=== PATIENT | male | born 1945 | race Caucasian/White ===

== ENCOUNTER → 2020-05-27 | Outpatient (CLI) | payer OTHER | LOC: HEART 5 04-21 11:00 → EXRD 12:42 → HEART 5 13:00 → EXRD 13:00 → US 13:00 → HEART 5 13:30 | DX: I65.23 Occlusion and stenosis of bilateral carotid arteries (principal); I73.9 Peripheral vascular disease, unspecified; I87.2 Venous insufficiency (chronic) (peripheral) | CPT/HCPCS: 93880; 93970 ==

== ENCOUNTER → 2020-11-11 | Outpatient (CLI) | payer MEDICARE | LOC: ECHO 10:13 | DX: M79.89 Other specified soft tissue disorders (principal); I51.7 Cardiomegaly; I51.9 Heart disease, unspecified | CPT/HCPCS: ECHO; 93306 ==

== ENCOUNTER 2021-07-08 15:32 | Inpatient (IN) | payer MEDICARE, OTHER ==
[~2021-07-08] VITALS: Ht 170.2 cm; Wt 72.6 kg
[2021-07-08 17:23] LABS: HEMOGLOBIN 12.1 gm/dl (14.0-17.5); RED BLOOD COUNT 4.21 M/UL (4.20-5.50); WHITE BLOOD COUNT 4.3 K/UL (4.5-11.0)
[2021-07-08 17:25] LABS: BORDETELLA PARAPERTUSSIS Not Detected (Not Detectd); BORDETELLA PERTUSSIS Not Detected (Not Detectd); CHLAMYDIA PNEUMONIAE Not Detected (Not Detectd); CORONAVIRUS HKU1 Not Detected (Not Detectd); CORONAVIRUS NL63 Not Detected (Not Detectd); CORONAVIRUS OC43 Not Detected (Not Detectd); CORONOAVIRUS 229E Not Detected (Not Detectd); HUMAN METAPNEUMOVIRUS Not Detected (Not Detectd); HUMAN RHINOVIRUS/ENTEROVIRUS Not Detected (Not Detectd); INFLUENZA A Not Detected (Not Detectd); INFLUENZA B Not Detected (Not Detectd); MYCOPLASMA PNEUMONIAE Not Detected (Not Detectd); PARAINFLUENZA VIRUS 1 Not Detected (Not Detectd); PARAINFLUENZA VIRUS 2 Not Detected (Not Detectd); PARAINFLUENZA VIRUS 3 Not Detected (Not Detectd); PARAINFLUENZA VIRUS 4 Not Detected (Not Detectd); RESPIRATORY SYNCYTIAL VIRUS Not Detected (Not Detectd)
[2021-07-08 17:49] LABS: BUN/CREATININE RATIO 28 (0-10)
[2021-07-08 18:43] LABS: SARS-CoV-2 DETECTED (Not Detectd)
[2021-07-08] MEDS ORDERED: METFORMIN HCL500 MG PO (22:59)
[2021-07-08] MEDS ORDERED: DONEPEZIL HCL10 MG PO (23:00)
[2021-07-08] MEDS ORDERED: MELOXICAM15 MG PO (23:01)
[2021-07-08] MEDS ORDERED: ATORVASTATIN CA40 MG PO (23:01)
[2021-07-08] MEDS ORDERED: FUROSEMIDE20 MG PO (23:02)
[2021-07-08] MEDS ORDERED: LISINOPRIL40 MG PO (23:02)
[2021-07-08] MEDS ORDERED: FERROUS SULFAT325 M2 PO (23:13)
[2021-07-08] MEDS ORDERED: VITAMIN C125 MG PO (23:13)
[2021-07-09 07:10] LABS: HEMOGLOBIN 10.8 gm/dl (14.0-17.5); RED BLOOD COUNT 3.81 M/UL (4.20-5.50)
[2021-07-09 07:41] LABS: BUN/CREATININE RATIO 29 (0-10)
[2021-07-10 03:58] LABS: HEMOGLOBIN 11.7 gm/dl (14.0-17.5); RED BLOOD COUNT 4.1 M/UL (4.20-5.50); WHITE BLOOD COUNT 3.9 K/UL (4.5-11.0)
[2021-07-10 04:54] LABS: BUN/CREATININE RATIO 29 (0-10)
[2021-07-11 03:02] LABS: RED BLOOD COUNT 4.25 M/UL (4.20-5.50); WHITE BLOOD COUNT 3.3 K/UL (4.5-11.0)
[2021-07-11 04:00] LABS: BUN/CREATININE RATIO 22 (0-10)
--- NOTE | 2021-07-11 19:29 | NUR ---
PT TRANSPORTED TO STAT CTA OF HEAD AND NECK TO R/O STROKE. PT STABLE AT THE TIME OF TRANSFER.
--- NOTE | 2021-07-11 19:54 | NUR ---
PT TRANSPORTED BACK TO ROOM [address] PT IN ROOM. BED IN LOWEST POSITION, CALL LIGHT WITHIN REACH, STRIP ALARM PLUGGED BACK IN. PT STABLE.
[2021-07-12 03:52] LABS: HEMOGLOBIN 14.7 gm/dl (14.0-17.5); RED BLOOD COUNT 5.13 M/UL (4.20-5.50); WHITE BLOOD COUNT 5.5 K/UL (4.5-11.0)
[2021-07-12 04:13] LABS: BUN/CREATININE RATIO 29 (0-10)
--- NOTE | 2021-07-12 08:59 | NUR ---
FINISHED PATIENTS ASSESSMENT THIS AM AND RECIEVED CALL FROM FAMILY MEMBER CONCERNING PATIENT. INFORMED FAMILY MEMBER WHO HAD HIPPA CODE WORD THAT I WAS CONCERNED FOR THE PATIENT. PATIENT WAS NON RESPONSIVE, HANDS AND FEET WERE COLD AND PATIENTS BREATHING WAS LABORED AND SLOW. FAMILY MEMBER REITERATED PATIENTS WISHES TO BE DNR DNI AND TO BE MADE COMFORTABLE. I HUNG UP WITH THE FAMILY MEMBER ASSURING THEM I WOULD CALL WITH ANY CHANGES TO MR. VENCES. I WAS FINISHING MY ASSESSMENT ON NEXT PATIENT MY PHONE RANG, IT WAS TELEMETRY INFORMING ME THAT THE PATIENT HAD BRADIED DOWN INTO THE THIRTIES AND REACHED ASYSTOLE. DOROTHY FELIX RN ARRIVED AT PATIENTS ROOM AND HELPED ASSESS PATIENT. THE PATIENT HAD NO PULSE NO HEART BEAT AND NO BP. TIME OF 0814.
== END 2021-07-12 11:19 | disposition expired | DRG 177 ==
LOC: ER1 15:32 → MED SURG 4 20:30 → CDU 20:30 → MED SURG 4 21:49
PROVIDERS: Internal Medicine; Preventive Medicine Occupational Medicine; ADMIT Internal Medicine
PROC: 8E0ZXY6 Isolation (ICD-10-PCS; 2021-07-08)
PROC: XW033E5 Introduction of Remdesivir Anti-infective into Peripheral Vein, Percutaneous Approach, New Technology Group 5 (ICD-10-PCS; principal; 2021-07-10)
PROC: 3E0333Z Introduction of Anti-inflammatory into Peripheral Vein, Percutaneous Approach (ICD-10-PCS; 2021-07-11)
DX: U07.1 COVID-19 (principal); J12.82 Pneumonia due to coronavirus disease 2019; J69.0 Pneumonitis due to inhalation of food and vomit; G93.41 Metabolic encephalopathy; M62.82 Rhabdomyolysis; K50.90 Crohn's disease, unspecified, without complications; E87.1 Hypo-osmolality and hyponatremia; Z66 Do not resuscitate; F03.90 Unspecified dementia, unspecified severity, without behavioral disturbance, psychotic disturbance, mood disturbance, and anxiety; J98.2 Interstitial emphysema; R13.10 Dysphagia, unspecified; R32 Unspecified urinary incontinence; E86.0 Dehydration; W18.39XA Other fall on same level, initial encounter
CPT/HCPCS: 36415; 36600; 70450; 70496; 70498; 71045; 80053; 80307; 81001; 82140; 82550; 82553; 82803; 83605; 83690; 83735; 83874; 83880; 84484; 85025; 85027; 85652; 86140; 87633; 99285; G0480; J0248; J1100; J1335; J1644; J2060; J7030; Q9967